=== PATIENT | female | born 2000 | race Caucasian/White ===

== ENCOUNTER 2022-06-15 21:29 | Emergency (ER) | payer OTHER ==
[~2022-06-15] VITALS: Ht 170.2 cm; Wt 52.3 kg
[2022-06-15] MEDS ORDERED: ZOFRAN ODT4 MG PO (22:13)
[2022-06-15 22:42] VITALS: BP 100/63; PULSE 94; TEMP 98.1
== END 2022-06-15 22:44 | disposition home or self-care (01) ==
LOC: COL.ER 21:29
DX: B34.9 Viral infection, unspecified (principal); R50.9 Fever, unspecified; M79.10 Myalgia, unspecified site; R09.81 Nasal congestion; R11.0 Nausea; F17.290 Nicotine dependence, other tobacco product, uncomplicated; Z20.822 Contact with and (suspected) exposure to COVID-19